=== PATIENT | male | born 1960 | race Caucasian/White ===

== ENCOUNTER 2017-04-27 13:58 | Inpatient (IN) ==
[2017-04-27] MEDS ORDERED: ACETAMINOPHEN 325 MG TABLET PO PRN (14:16)
[2017-04-27] MEDS ORDERED: MORPHINE 2 MG/1 ML SYRINGE IV PRN (14:16)
[2017-04-27 14:26] LABS: ABG HCO3 30.8 MMOL/L (20-26); ABG Oxygen Saturation 98.3 % (95-100); ABG PCO2 40.6 MM HG (35-48); ABG PO2 94.4 MM HG (80-95); ABG TCO2 27.2 MMOL/L (23-27)
[2017-04-27] MEDS ORDERED: SODIUM CHLORIDE 0.9% 3,550 ML IV ONE (14:26)
[2017-04-27] MEDS ORDERED: NOREPINEPHRINE 8 MG in SODIUM CHLORIDE 0.9% 242 ML IV SCH (14:30)
[2017-04-27] MEDS ORDERED: MIDAZOLAM 100 MG in SODIUM CHLORIDE 0.9% 80 ML IV SCH (14:30)
[2017-04-27] MEDS ORDERED: LORazepam INJ 40 MG in DEXTROSE 5% 30 ML IV SCH (14:30)
[2017-04-27 15:00] LABS: Apearance,Urine Slightly Hazy (Clear); Bacteria,Urine Occasional /HPF (Few); Bilirubin,Urine Negative (Negative); Blood, Urine Moderate mg/dL (Negative); Glucose,Urine (UA) Negative (Negative); Hyaline Casts,Urine 1 /LPF (0-3); Ketones,Urine Negative (Negative); Mucus,Urine Occasional /LPF (Occasional); Nitrite,Urine Negative (Negative); Protein,Urine 30 MG/DL; RBC,Urine 157 /HPF (0-4); Renal Epithelial Cells,Urine Occasional /HPF (<1); Urine Color Yellow (Yellow); Urine Specific Gravity 1.028 (1.001-1.035); Urine Urobilinogen < 2.0 EU/DL (0.2-1.0); WBC,Urine 3 /HPF (0-6)
[2017-04-27 15:04] LABS: Basophils % 0.2 % (0.0-0.8); Hemoglobin 11.5 GM/DL (14.0-18.0); Immature Granulocytes % 1.2 %; Lymphocytes # 0.6 10*3/uL (1.4-4.0); Lymphocytes % 3.8 % (21.2-54.2); Mean Corpuscular HGB Conc 31.1 GM/DL (32-36); Mean Corpuscular Hemoglobin 29 PG (27-34); Mean Corpuscular Volume 93.9 FL (87-102); Mean Platelet Volume 9.3 FL (9.6-12.0); Neutrophils # 14.4 10*3/uL (1.4-7.4); Neutrophils % 88.8 % (38.7-73.9); Platelet Count 366 T/CUMM (130-400); Red Blood Count 3.94 MC/CUMM (3.8-5.5); White Blood Count 16.2 T/CUMM (4-12)
[2017-04-27 15:36] LABS: Calcium 8.6 MG/DL (8.5-10.1)
[2017-04-27 15:37] LABS: Albumin 2.1 G/DL (3.4-5.0); Bilirubin,Total 0.5 MG/DL (0.2-1.0); Magnesium 2.7 MG/DL (1.8-2.4); Osmolality,Calculated 285.3 MOS/KG (273-304); Potassium 4.5 MMOL/L (3.5-5.1); Thyroid Stimulating Hormone 0.132 uIU/ml (0.358-3.74); Troponin I Only 0.022 NG/ML (0.00-0.045)
[2017-04-27 16:01] LABS: Band Neutrophils 1 % (0-10); Lymphocytes 4 % (20-55); Platelet Estimate Normal; Segmented Neutrophils 91 % (50-85); Total Cells Counted 100
[2017-04-27 16:19] LABS: HIV Antigen/Antibody Result Nonreactive (Nonreactive); Hepatitis A Ab IgM Quant 0.08 Index; Hepatitis A Ab IgM Result Negative (Negative); Hepatitis B Core IgM Quant 0.17 Index; Hepatitis B Core IgM Result Negative (Negative); Hepatitis B Surface Ag Quant < 0.10 Index; Hepatitis B Surface Ag Result Negative (Negative); Hepatitis C Virus Ab Quant 0.03 Index; Hepatitis C Virus Ab Result Negative (Negative)
[2017-04-27] MEDS: PROPOFOL 1,000 MG/100 ML BOTTLE IV SCH ×2 (16:45→23:24)
[2017-04-27] MEDS: SODIUM CHLORIDE 0.9% 1,000 ML IV SCH (16:46)
[2017-04-27] MEDS: FAMOTIDINE 20 MG/2 ML VIAL IV SCH (16:46)
[2017-04-27] MEDS: PIPERACILLIN/TAZOBACTAM 3,375 MG in SODIUM CHLORIDE 0.9% 100 ML IV SCH (16:46)
[2017-04-27] MEDS: GENTAMICIN INJ 560 MG in SODIUM CHLORIDE 0.9% 100 ML IV SCH (19:49)
[2017-04-27] MEDS: ENOXAPARIN 40 MG/0.4 ML SYRINGE SUBCUT SCH (20:30)
[2017-04-27] MEDS ORDERED: VANCOMYCIN INJ 2,000 MG in SODIUM CHLORIDE 0.9% 500 ML IV ONE (21:00)
[2017-04-27] MEDS ORDERED: fentaNYL 100 MCG/2 ML VIAL IV ONE (21:36)
[2017-04-27] MEDS ORDERED: EPINEPHrine 1 MG/ML VIAL ONE (22:02)
[2017-04-27] MEDS ORDERED: PHENYLEPHRINE DRIP 40 MG/250 ML PREMIX IV ONE (22:19)
[2017-04-27 22:32] LABS: ABG Base Excess 1.9 MMOL/L (-2.5-2.5); ABG HCO3 26.1 MMOL/L (20-26); ABG PCO2 46.8 MM HG (35-48); ABG PH 7.379 (7.35-7.45); ABG TCO2 24.7 MMOL/L (23-27)
[2017-04-27] MEDS: PHENYLEPHRINE DRIP 40 MG/250 ML PREMIX IV SCH (22:47)
[2017-04-27] MEDS: fentaNYL INJ 1,250 MCG in SODIUM CHLORIDE 0.9% 225 ML IV SCH (22:48)
[2017-04-27] MEDS ORDERED: ALBUTEROL/IPRATROPIUM 3 ML NEB RESP TX PRN (23:17)
[2017-04-27] MEDS ORDERED: SODIUM CHLORIDE 0.9% 1,000 ML IV ONE (23:19)
[2017-04-28] MEDS: DOPamine 800 MG/250 ML PREMIX IV SCH (00:04)
[2017-04-28] MEDS: PIPERACILLIN/TAZOBACTAM 3,375 MG in SODIUM CHLORIDE 0.9% 100 ML IV SCH ×3 (00:14→20:08)
[2017-04-28] MEDS: SODIUM CHLORIDE 0.9% 1,000 ML IV SCH ×4 (01:32→15:26)
[2017-04-28] MEDS: ALBUTEROL/IPRATROPIUM 3 ML NEB RESP TX SCH ×5 (02:02→20:05)
[2017-04-28] MEDS: FAMOTIDINE 20 MG/2 ML VIAL IV SCH ×2 (03:30→20:08)
[2017-04-28 04:21] LABS: Basophils # 0.1 10*3/uL (0.0-0.2); Basophils % 0.6 % (0.0-0.8); Eosinophils # 0.1 10*3/uL (0.0-0.87); Eosinophils % 0.8 % (0.00-10.9); Hematocrit 35.2 VOL% (42.0-52.0); Immature Granulocytes % 0.7 %; Immature Granulocytes Absolute 0.11 #; Lymphocytes % 6.3 % (21.2-54.2); Mean Corpuscular HGB Conc 31.3 GM/DL (32-36); Mean Corpuscular Hemoglobin 29 PG (27-34); Mean Corpuscular Volume 92.1 FL (87-102); Mean Platelet Volume 9.1 FL (9.6-12.0); Monocytes # 1.5 10*3/uL (0.11-0.8); Monocytes % 9.5 % (1.7-12.7); Neutrophils # 12.9 10*3/uL (1.4-7.4); Neutrophils % 82.1 % (38.7-73.9); Platelet Count 360 T/CUMM (130-400); Red Blood Count 3.82 MC/CUMM (3.8-5.5); Red Cell Distribution Width 12.9 % (9.3-17.3); White Blood Count 15.8 T/CUMM (4-12)
[2017-04-28 04:35] LABS: ABG Base Excess 2.3 MMOL/L (-2.5-2.5); ABG HCO3 27.5 MMOL/L (20-26); ABG PCO2 45.8 MM HG (35-48); ABG PH 7.397 (7.35-7.45); ABG PO2 118.1 MM HG (80-95); ABG TCO2 28.9 MMOL/L (23-27)
[2017-04-28 04:49] LABS: Lactic Acid 0.8 MMOL/L (0.4-2.0)
[2017-04-28 04:56] LABS: Albumin 1.9 G/DL (3.4-5.0); Bilirubin,Total 0.5 MG/DL (0.2-1.0); Calcium 8.1 MG/DL (8.5-10.1); Magnesium 2.5 MG/DL (1.8-2.4); Osmolality,Calculated 290.7 MOS/KG (273-304); Potassium 3.8 MMOL/L (3.5-5.1); Total Protein 5.6 G/DL (6.4-8.3)
[2017-04-28] MEDS: PROPOFOL 1,000 MG/100 ML BOTTLE IV SCH ×6 (04:56→22:51)
[2017-04-28] MEDS: VANCOMYCIN INJ 1,750 MG in SODIUM CHLORIDE 0.9% 500 ML IV SCH ×2 (10:19→21:14)
[2017-04-28 12:30] LABS: ABG Base Excess 3.9 MMOL/L (-2.5-2.5); ABG HCO3 27.9 MMOL/L (20-26); ABG Oxygen Saturation 97.1 % (95-100); ABG PCO2 50.4 MM HG (35-48); ABG PH 7.382 (7.35-7.45); ABG PO2 91.9 MM HG (80-95); ABG TCO2 26.9 MMOL/L (23-27)
[2017-04-28] MEDS ORDERED: LIDOCAINE 1% 20 ML VIAL MISC INJ ONE (15:28)
[2017-04-28] MEDS ORDERED: LIDOCAINE 2% 20 ML VIAL RESP TX ONE (15:28)
[2017-04-28] MEDS ORDERED: ETOMIDATE 20 MG/10 ML VIAL IV ONE (17:43)
[2017-04-28] MEDS ORDERED: CISATRACURIUM 10 MG/5 ML VIAL IV ONE (19:39)
[2017-04-28 19:41] LABS: ABG Base Excess 3.5 MMOL/L (-2.5-2.5); ABG HCO3 27.3 MMOL/L (20-26); ABG Oxygen Saturation 85.6 % (95-100); ABG PCO2 54.2 MM HG (35-48); ABG PH 7.355 (7.35-7.45); ABG PO2 54.8 MM HG (80-95); ABG TCO2 27.2 MMOL/L (23-27)
[2017-04-28] MEDS: CISATRACURIUM 10 MG/5 ML VIAL IV PRN ×2 (20:58→22:45)
[2017-04-28] MEDS: GENTAMICIN INJ 560 MG in SODIUM CHLORIDE 0.9% 100 ML IV SCH (21:17)
[2017-04-28] MEDS: ENOXAPARIN 40 MG/0.4 ML SYRINGE SUBCUT SCH (21:24)
[2017-04-28] MEDS: ALBUTEROL 2.5 MG/3 ML NEB RESP TX PRN (21:27)
[2017-04-28] MEDS: fentaNYL INJ 1,250 MCG in SODIUM CHLORIDE 0.9% 225 ML IV SCH (21:59)
[2017-04-28] MEDS ORDERED: CISATRACURIUM 200 MG in SODIUM CHLORIDE 0.9% 100 ML IV SCH (23:00)
[2017-04-28] MEDS: CISATRACURIUM 200 MG in SODIUM CHLORIDE 0.9% 100 ML IV SCH (23:26)
[2017-04-29] MEDS: DOPamine 800 MG/250 ML PREMIX IV SCH ×3 (00:08→23:07)
[2017-04-29] MEDS: PIPERACILLIN/TAZOBACTAM 3,375 MG in SODIUM CHLORIDE 0.9% 100 ML IV SCH ×3 (00:33→16:06)
[2017-04-29] MEDS: ALBUTEROL/IPRATROPIUM 3 ML NEB RESP TX SCH ×4 (01:33→19:44)
[2017-04-29] MEDS: PROPOFOL 1,000 MG/100 ML BOTTLE IV SCH ×8 (01:40→23:15)
[2017-04-29] MEDS: SODIUM CHLORIDE 0.9% 1,000 ML IV SCH ×3 (03:05→19:32)
[2017-04-29] MEDS: fentaNYL INJ 1,250 MCG in SODIUM CHLORIDE 0.9% 225 ML IV SCH ×5 (03:38→21:28)
[2017-04-29] MEDS: FAMOTIDINE 20 MG/2 ML VIAL IV SCH ×2 (04:40→16:07)
[2017-04-29 05:07] LABS: ABG Base Excess -4.8 MMOL/L (-2.5-2.5); ABG HCO3 20.4 MMOL/L (20-26); ABG Oxygen Saturation 96.1 % (95-100); ABG TCO2 28.2 MMOL/L (23-27)
[2017-04-29 05:13] LABS: Basophils # 0.1 10*3/uL (0.0-0.2); Basophils % 0.3 % (0.0-0.8); Eosinophils # 0.2 10*3/uL (0.0-0.87); Eosinophils % 0.6 % (0.00-10.9); Hematocrit 39.3 VOL% (42.0-52.0); Immature Granulocytes % 4.2 %; Immature Granulocytes Absolute 1.46 #; Lymphocytes % 2.8 % (21.2-54.2); Mean Corpuscular HGB Conc 30.5 GM/DL (32-36); Mean Corpuscular Hemoglobin 30 PG (27-34); Mean Corpuscular Volume 96.6 FL (87-102); Mean Platelet Volume 9.1 FL (9.6-12.0); Monocytes # 2.1 10*3/uL (0.11-0.8); Neutrophils # 29.8 10*3/uL (1.4-7.4); Neutrophils % 86.1 % (38.7-73.9); Platelet Count 385 T/CUMM (130-400); Red Blood Count 4.07 MC/CUMM (3.8-5.5); Red Cell Distribution Width 13.1 % (9.3-17.3); White Blood Count 34.7 T/CUMM (4-12)
[2017-04-29 05:13] LABS: ABG PH 7.069 (7.35-7.45)
[2017-04-29] MEDS ORDERED: SODIUM BICARBONATE 50 MEQ/50 ML SYRINGE IV ONE ×2 (05:31→05:32)
[2017-04-29 05:37] LABS: Band Neutrophils 2 % (0-10); Hypochromasia 1+; Lymphocytes 2 % (20-55); Metamyelocytes 1 %; Platelet Estimate Normal; Segmented Neutrophils 90 % (50-85); Total Cells Counted 100
[2017-04-29 05:54] LABS: Calcium 7.9 MG/DL (8.5-10.1); Osmolality,Calculated 289.8 MOS/KG (273-304); Potassium 4.6 MMOL/L (3.5-5.1)
[2017-04-29] MEDS: VANCOMYCIN INJ 1,750 MG in SODIUM CHLORIDE 0.9% 500 ML IV SCH ×2 (08:18→23:13)
[2017-04-29] MEDS ORDERED: DEXTROSE 50% 25 GM/50 ML VIAL IV PRN (16:09)
[2017-04-29] MEDS ORDERED: GLUCAGON 1 MG VIAL IM PRN (16:09)
[2017-04-29] MEDS: INSULIN REGULAR 100 UNIT/ML SUBCUT SCH (18:33)
[2017-04-29] MEDS: ENOXAPARIN 40 MG/0.4 ML SYRINGE SUBCUT SCH (23:13)
[2017-04-30] MEDS: INSULIN REGULAR 100 UNIT/ML SUBCUT SCH ×5 (00:16→23:31)
[2017-04-30] MEDS: DOPamine 800 MG/250 ML PREMIX IV SCH ×5 (00:16→23:31)
[2017-04-30] MEDS: ALBUTEROL/IPRATROPIUM 3 ML NEB RESP TX SCH ×4 (00:22→19:19)
[2017-04-30] MEDS: SODIUM CHLORIDE 0.9% 1,000 ML IV SCH ×3 (00:41→08:27)
[2017-04-30] MEDS: CISATRACURIUM 200 MG in SODIUM CHLORIDE 0.9% 100 ML IV SCH ×4 (00:41→22:51)
[2017-04-30] MEDS: PIPERACILLIN/TAZOBACTAM 3,375 MG in SODIUM CHLORIDE 0.9% 100 ML IV SCH ×3 (00:52→15:46)
[2017-04-30] MEDS: LINEZOLID INJ 600 MG in PREMIX 1 EACH IV SCH ×2 (00:52→10:50)
[2017-04-30] MEDS: PROPOFOL 1,000 MG/100 ML BOTTLE IV SCH ×7 (03:00→23:30)
[2017-04-30] MEDS: fentaNYL INJ 1,250 MCG in SODIUM CHLORIDE 0.9% 225 ML IV SCH ×4 (03:19→22:52)
[2017-04-30] MEDS: FAMOTIDINE 20 MG/2 ML VIAL IV SCH ×2 (04:13→15:46)
[2017-04-30 05:08] LABS: Magnesium 2.5 MG/DL (1.8-2.4); Prealbumin 10.6 MG/DL (20-40)
[2017-04-30 05:31] LABS: ABG Base Excess -4.6 MMOL/L (-2.5-2.5); ABG HCO3 20.6 MMOL/L (20-26); ABG Oxygen Saturation 97.4 % (95-100); ABG TCO2 27.1 MMOL/L (23-27)
[2017-04-30 05:33] LABS: ABG PCO2 95.7 MM HG (35-48); ABG PH 7.083 (7.35-7.45)
[2017-04-30 06:08] LABS: HIV Antigen/Antibody Result Nonreactive (Nonreactive)
[2017-04-30 07:03] LABS: Basophils # 0.1 10*3/uL (0.0-0.2); Basophils % 0.3 % (0.0-0.8); Eosinophils # 0.2 10*3/uL (0.0-0.87); Eosinophils % 0.8 % (0.00-10.9); Hematocrit 36.5 VOL% (42.0-52.0); Immature Granulocytes % 4.3 %; Immature Granulocytes Absolute 1.12 #; Lymphocytes # 0.6 10*3/uL (1.4-4.0); Lymphocytes % 2.3 % (21.2-54.2); Mean Corpuscular HGB Conc 30.1 GM/DL (32-36); Mean Corpuscular Hemoglobin 29 PG (27-34); Mean Corpuscular Volume 95.5 FL (87-102); Mean Platelet Volume 9.4 FL (9.6-12.0); Monocytes # 1.4 10*3/uL (0.11-0.8); Monocytes % 5.3 % (1.7-12.7); Neutrophils # 22.5 10*3/uL (1.4-7.4); Platelet Count 282 T/CUMM (130-400); Red Blood Count 3.82 MC/CUMM (3.8-5.5); Red Cell Distribution Width 12.9 % (9.3-17.3); White Blood Count 25.9 T/CUMM (4-12)
[2017-04-30 07:28] LABS: Band Neutrophils 3 % (0-10); Eosinophils 1 % (0-10); Lymphocytes 4 % (20-55); Myelocytes 1 %; Segmented Neutrophils 88 % (50-85); Total Cells Counted 100
[2017-04-30 07:29] LABS: Hypochromasia 1+
[2017-04-30 07:30] LABS: Microcytosis 1+; Platelet Estimate Normal
[2017-04-30 07:33] LABS: Calcium 7.4 MG/DL (8.5-10.1); Magnesium 2.5 MG/DL (1.8-2.4); Osmolality,Calculated 289.1 MOS/KG (273-304); Potassium 5.6 MMOL/L (3.5-5.1)
[2017-04-30] MEDS ORDERED: SODIUM POLYSTYRENE SULFATE 15 GM/60 ML BOTTLE RECTAL ONE (07:47)
[2017-04-30] MEDS: SODIUM BICARB INJ 100 MEQ in DEXTROSE 5% 900 ML IV SCH ×2 (08:18→19:40)
[2017-04-30 08:33] LABS: ABG Base Excess -10.2 MMOL/L (-2.5-2.5); ABG HCO3 16.2 MMOL/L (20-26); ABG Oxygen Saturation 95.6 % (95-100); ABG PCO2 47.5 MM HG (35-48); ABG PO2 79.1 MM HG (80-95); ABG TCO2 17.1 MMOL/L (23-27)
[2017-04-30 08:46] LABS: ABG PH 7.182 (7.35-7.45)
[2017-04-30 17:11] LABS: ABG Base Excess -10.4 MMOL/L (-2.5-2.5); ABG HCO3 17.1 MMOL/L (20-26); ABG Oxygen Saturation 93.4 % (95-100); ABG PCO2 45.6 MM HG (35-48); ABG PO2 77.2 MM HG (80-95); ABG TCO2 18.5 MMOL/L (23-27)
[2017-04-30 17:13] LABS: ABG PH 7.192 (7.35-7.45)
[2017-04-30] MEDS: TOBRAMYCIN 80 MG/2 ML VIAL RESP TX SCH (19:44)
[2017-04-30] MEDS: ENOXAPARIN 40 MG/0.4 ML SYRINGE SUBCUT SCH (21:08)
[2017-05-01] MEDS: PIPERACILLIN/TAZOBACTAM 3,375 MG in SODIUM CHLORIDE 0.9% 100 ML IV SCH ×3 (00:03→15:44)
[2017-05-01] MEDS: LINEZOLID INJ 600 MG in PREMIX 1 EACH IV SCH ×2 (00:03→10:43)
[2017-05-01] MEDS: ALBUTEROL/IPRATROPIUM 3 ML NEB RESP TX SCH ×2 (00:37→07:02)
[2017-05-01] MEDS: DOPamine 800 MG/250 ML PREMIX IV SCH ×2 (02:35→11:38)
[2017-05-01] MEDS: SODIUM BICARB INJ 100 MEQ in DEXTROSE 5% 900 ML IV SCH ×2 (03:05→14:09)
[2017-05-01] MEDS: PROPOFOL 1,000 MG/100 ML BOTTLE IV SCH ×5 (03:30→20:06)
[2017-05-01] MEDS: fentaNYL INJ 1,250 MCG in SODIUM CHLORIDE 0.9% 225 ML IV SCH ×4 (04:45→22:30)
[2017-05-01 05:02] LABS: ABG Base Excess 0.8 MMOL/L (-2.5-2.5); ABG HCO3 25.1 MMOL/L (20-26); ABG PCO2 66.8 MM HG (35-48); ABG PH 7.255 (7.35-7.45); ABG PO2 80.1 MM HG (80-95); ABG TCO2 27.3 MMOL/L (23-27)
[2017-05-01] MEDS: FAMOTIDINE 20 MG/2 ML VIAL IV SCH ×2 (05:05→15:44)
[2017-05-01 05:11] LABS: Basophils # 0.1 10*3/uL (0.0-0.2); Basophils % 0.5 % (0.0-0.8); Eosinophils # 0.4 10*3/uL (0.0-0.87); Eosinophils % 2.3 % (0.00-10.9); Hematocrit 35.1 VOL% (42.0-52.0); Hemoglobin 10.8 GM/DL (14.0-18.0); Immature Granulocytes % 2.2 %; Immature Granulocytes Absolute 0.33 #; Lymphocytes # 0.7 10*3/uL (1.4-4.0); Lymphocytes % 4.5 % (21.2-54.2); Mean Corpuscular HGB Conc 30.8 GM/DL (32-36); Mean Corpuscular Hemoglobin 29 PG (27-34); Mean Corpuscular Volume 93.1 FL (87-102); Mean Platelet Volume 9.4 FL (9.6-12.0); Monocytes # 0.7 10*3/uL (0.11-0.8); Monocytes % 4.9 % (1.7-12.7); Neutrophils % 85.6 % (38.7-73.9); Platelet Count 256 T/CUMM (130-400); Red Blood Count 3.77 MC/CUMM (3.8-5.5); Red Cell Distribution Width 13.2 % (9.3-17.3); White Blood Count 15.1 T/CUMM (4-12)
[2017-05-01 05:35] LABS: Band Neutrophils 4 % (0-10); Eosinophils 1 % (0-10); Lymphocytes 4 % (20-55); Segmented Neutrophils 86 % (50-85); Total Cells Counted 100
[2017-05-01 05:36] LABS: Hypochromasia 1+; Microcytosis 1+; Platelet Estimate Normal
[2017-05-01 05:40] LABS: Calcium 7.6 MG/DL (8.5-10.1); Magnesium 2.5 MG/DL (1.8-2.4); Osmolality,Calculated 292.1 MOS/KG (273-304); Potassium 4.2 MMOL/L (3.5-5.1)
[2017-05-01] MEDS: INSULIN REGULAR 100 UNIT/ML SUBCUT SCH ×3 (05:43→18:19)
[2017-05-01] MEDS: TOBRAMYCIN 80 MG/2 ML VIAL RESP TX SCH ×2 (07:02→21:15)
[2017-05-01 08:35] LABS: ABG Base Excess 0.1 MMOL/L (-2.5-2.5); ABG HCO3 24.5 MMOL/L (20-26); ABG PH 7.231 (7.35-7.45); ABG PO2 88.1 MM HG (80-95); ABG TCO2 27.2 MMOL/L (23-27)
[2017-05-01] MEDS: methylPREDNISolone SOD SUC 40 MG/1 ML VIAL IV SCH ×2 (08:49→15:44)
[2017-05-01 09:12] LABS: ABG PCO2 69.7 MM HG (35-48)
[2017-05-01] MEDS: FUROSEMIDE 40 MG/4 ML VIAL IV SCH (11:54)
[2017-05-01] MEDS ORDERED: INFLUENZA VIRUS VACCINE 0.5 ML SYRINGE IM ONE (13:16)
[2017-05-01] MEDS: CISATRACURIUM 200 MG in SODIUM CHLORIDE 0.9% 100 ML IV SCH ×2 (18:01→23:17)
[2017-05-01] MEDS: AMINO ACIDS/DEXT/LYTES 5-15% 2,000 ML IV SCH (18:19)
[2017-05-01] MEDS: ENOXAPARIN 40 MG/0.4 ML SYRINGE SUBCUT SCH (20:04)
[2017-05-02] MEDS: methylPREDNISolone SOD SUC 40 MG/1 ML VIAL IV SCH ×3 (00:04→16:09)
[2017-05-02] MEDS: PROPOFOL 1,000 MG/100 ML BOTTLE IV SCH ×6 (00:04→18:55)
[2017-05-02] MEDS: LINEZOLID INJ 600 MG in PREMIX 1 EACH IV SCH ×2 (00:06→11:12)
[2017-05-02] MEDS: INSULIN REGULAR 100 UNIT/ML SUBCUT SCH ×4 (00:15→18:47)
[2017-05-02] MEDS: PIPERACILLIN/TAZOBACTAM 3,375 MG in SODIUM CHLORIDE 0.9% 100 ML IV SCH ×3 (01:00→16:09)
[2017-05-02] MEDS: DOPamine 800 MG/250 ML PREMIX IV SCH (02:04)
[2017-05-02] MEDS: SODIUM BICARB INJ 100 MEQ in DEXTROSE 5% 900 ML IV SCH ×3 (02:06→18:46)
[2017-05-02] MEDS: fentaNYL INJ 1,250 MCG in SODIUM CHLORIDE 0.9% 225 ML IV SCH ×4 (05:04→18:56)
[2017-05-02] MEDS: FAMOTIDINE 20 MG/2 ML VIAL IV SCH ×2 (05:20→16:09)
[2017-05-02 05:23] LABS: ABG Base Excess 2.9 MMOL/L (-2.5-2.5); ABG HCO3 31.3 MMOL/L (20-26); ABG Oxygen Saturation 94.5 % (95-100); ABG PH 7.259 (7.35-7.45); ABG PO2 79.9 MM HG (80-95); ABG TCO2 33.5 MMOL/L (23-27)
[2017-05-02 05:25] LABS: Basophils % 0.2 % (0.0-0.8); Hematocrit 30.6 VOL% (42.0-52.0); Hemoglobin 9.7 GM/DL (14.0-18.0); Immature Granulocytes % 2.4 %; Immature Granulocytes Absolute 0.28 #; Lymphocytes # 0.3 10*3/uL (1.4-4.0); Lymphocytes % 2.8 % (21.2-54.2); Mean Corpuscular HGB Conc 31.7 GM/DL (32-36); Mean Corpuscular Hemoglobin 29 PG (27-34); Mean Corpuscular Volume 92.2 FL (87-102); Mean Platelet Volume 9.6 FL (9.6-12.0); Monocytes # 0.6 10*3/uL (0.11-0.8); Monocytes % 5.2 % (1.7-12.7); NRBC # 0.02 10*3/uL; Neutrophils # 10.3 10*3/uL (1.4-7.4); Neutrophils % 89.4 % (38.7-73.9); Platelet Count 201 T/CUMM (130-400); Red Blood Count 3.32 MC/CUMM (3.8-5.5); Red Cell Distribution Width 13.4 % (9.3-17.3); White Blood Count 11.5 T/CUMM (4-12)
[2017-05-02 05:28] LABS: ABG PCO2 71.5 MM HG (35-48)
[2017-05-02 06:12] LABS: Calcium 7.7 MG/DL (8.5-10.1); Osmolality,Calculated 295.4 MOS/KG (273-304); Potassium 4.4 MMOL/L (3.5-5.1)
[2017-05-02 06:17] LABS: Band Neutrophils 1 % (0-10); Hypochromasia 1+; Lymphocytes 3 % (20-55); Microcytosis 1+; Platelet Estimate Normal; Segmented Neutrophils 90 % (50-85); Total Cells Counted 100
[2017-05-02] MEDS ORDERED: FUROSEMIDE 40 MG/4 ML VIAL IV ONE (06:56)
[2017-05-02] MEDS: TOBRAMYCIN 80 MG/2 ML VIAL RESP TX SCH ×2 (08:33→20:13)
[2017-05-02 08:38] LABS: ABG Base Excess 1.1 MMOL/L (-2.5-2.5); ABG HCO3 25.2 MMOL/L (20-26); ABG Oxygen Saturation 90.8 % (95-100); ABG PH 7.232 (7.35-7.45); ABG PO2 65.7 MM HG (80-95); ABG TCO2 28.3 MMOL/L (23-27)
[2017-05-02 08:42] LABS: ABG PCO2 72.3 MM HG (35-48)
[2017-05-02] MEDS: FUROSEMIDE 40 MG/4 ML VIAL IV SCH (09:58)
[2017-05-02] MEDS: CISATRACURIUM 200 MG in SODIUM CHLORIDE 0.9% 100 ML IV SCH (10:01)
[2017-05-02] MEDS: AMINO ACIDS/DEXT/LYTES 5-15% 2,000 ML IV SCH (17:38)
[2017-05-02] MEDS: ENOXAPARIN 40 MG/0.4 ML SYRINGE SUBCUT SCH (21:50)
[2017-05-03] MEDS: methylPREDNISolone SOD SUC 40 MG/1 ML VIAL IV SCH ×4 (00:06→23:37)
[2017-05-03] MEDS: INSULIN REGULAR 100 UNIT/ML SUBCUT SCH ×5 (00:06→23:36)
[2017-05-03] MEDS: LINEZOLID INJ 600 MG in PREMIX 1 EACH IV SCH ×3 (00:06→23:37)
[2017-05-03] MEDS: PIPERACILLIN/TAZOBACTAM 3,375 MG in SODIUM CHLORIDE 0.9% 100 ML IV SCH ×3 (00:07→15:40)
[2017-05-03] MEDS: PROPOFOL 1,000 MG/100 ML BOTTLE IV SCH ×6 (00:07→21:39)
[2017-05-03] MEDS: CISATRACURIUM 200 MG in SODIUM CHLORIDE 0.9% 100 ML IV SCH ×3 (02:40→23:37)
[2017-05-03] MEDS: fentaNYL INJ 1,250 MCG in SODIUM CHLORIDE 0.9% 225 ML IV SCH ×4 (02:42→23:26)
[2017-05-03 04:45] LABS: ABG Base Excess -1.9 MMOL/L (-2.5-2.5); ABG HCO3 22.8 MMOL/L (20-26); ABG Oxygen Saturation 97.3 % (95-100); ABG TCO2 29.8 MMOL/L (23-27)
[2017-05-03 04:47] LABS: Basophils % 0.2 % (0.0-0.8); Hematocrit 29.9 VOL% (42.0-52.0); Hemoglobin 9.3 GM/DL (14.0-18.0); Immature Granulocytes % 4.9 %; Immature Granulocytes Absolute 0.59 #; Lymphocytes # 0.5 10*3/uL (1.4-4.0); Lymphocytes % 3.7 % (21.2-54.2); Mean Corpuscular HGB Conc 31.1 GM/DL (32-36); Mean Corpuscular Hemoglobin 29 PG (27-34); Mean Corpuscular Volume 94.6 FL (87-102); Mean Platelet Volume 9.9 FL (9.6-12.0); Monocytes % 8.2 % (1.7-12.7); NRBC # 0.02 10*3/uL; Neutrophils # 10.1 10*3/uL (1.4-7.4); Platelet Count 178 T/CUMM (130-400); Red Blood Count 3.16 MC/CUMM (3.8-5.5); Red Cell Distribution Width 13.3 % (9.3-17.3); White Blood Count 12.1 T/CUMM (4-12)
[2017-05-03 04:48] LABS: ABG PH 7.089 (7.35-7.45)
[2017-05-03 05:12] LABS: Calcium 7.4 MG/DL (8.5-10.1); Osmolality,Calculated 294.8 MOS/KG (273-304); Potassium 4.7 MMOL/L (3.5-5.1)
[2017-05-03] MEDS: DOPamine 800 MG/250 ML PREMIX IV SCH (05:45)
[2017-05-03] MEDS: FAMOTIDINE 20 MG/2 ML VIAL IV SCH ×2 (05:45→15:53)
[2017-05-03 05:46] LABS: Band Neutrophils 2 % (0-10); Hypochromasia 1+; Lymphocytes 6 % (20-55); Microcytosis 1+; Segmented Neutrophils 84 % (50-85); Total Cells Counted 100
[2017-05-03] MEDS ORDERED: SODIUM BICARBONATE 50 MEQ/50 ML SYRINGE IV ONE ×2 (06:00→06:47)
[2017-05-03 06:39] LABS: ABG Base Excess -1.1 MMOL/L (-2.5-2.5); ABG HCO3 23.5 MMOL/L (20-26); ABG Oxygen Saturation 97.6 % (95-100); ABG TCO2 29.8 MMOL/L (23-27)
[2017-05-03 06:42] LABS: ABG PCO2 97.4 MM HG (35-48); ABG PH 7.112 (7.35-7.45)
[2017-05-03] MEDS: TOBRAMYCIN 80 MG/2 ML VIAL RESP TX SCH ×2 (07:35→19:43)
[2017-05-03] MEDS: FUROSEMIDE 40 MG/4 ML VIAL IV SCH ×2 (07:44→15:42)
[2017-05-03] MEDS ORDERED: ATROPINE 1 MG/10 ML SYRINGE ONE (08:10)
[2017-05-03 08:20] LABS: ABG HCO3 25.2 MMOL/L (20-26); ABG Oxygen Saturation 91.4 % (95-100); ABG PH 7.212 (7.35-7.45); ABG PO2 62.8 MM HG (80-95); ABG TCO2 28.9 MMOL/L (23-27)
[2017-05-03 08:23] LABS: ABG PCO2 76.8 MM HG (35-48)
[2017-05-03] MEDS: SODIUM BICARB INJ 100 MEQ in DEXTROSE 5% 900 ML IV SCH ×2 (15:09→21:40)
[2017-05-03] MEDS: AMINO ACIDS/DEXT/LYTES 5-15% 2,000 ML IV SCH (17:09)
[2017-05-03] MEDS: ENOXAPARIN 40 MG/0.4 ML SYRINGE SUBCUT SCH (21:39)
[2017-05-03] MEDS: MINERAL OIL/PETROLATUM OPH OINT 3.5 GM TUBE BOTH EYES SCH (21:42)
[2017-05-04] MEDS: PIPERACILLIN/TAZOBACTAM 3,375 MG in SODIUM CHLORIDE 0.9% 100 ML IV SCH ×3 (00:35→15:40)
[2017-05-04] MEDS: DOPamine 800 MG/250 ML PREMIX IV SCH (03:33)
[2017-05-04] MEDS: FAMOTIDINE 20 MG/2 ML VIAL IV SCH ×2 (04:05→15:50)
[2017-05-04] MEDS: SODIUM BICARB INJ 100 MEQ in DEXTROSE 5% 900 ML IV SCH (04:06)
[2017-05-04 04:09] LABS: Basophils % 0.2 % (0.0-0.8); Hematocrit 31.7 VOL% (42.0-52.0); Hemoglobin 10.2 GM/DL (14.0-18.0); Immature Granulocytes % 4.4 %; Immature Granulocytes Absolute 0.58 #; Lymphocytes # 0.4 10*3/uL (1.4-4.0); Lymphocytes % 3.1 % (21.2-54.2); Mean Corpuscular HGB Conc 32.2 GM/DL (32-36); Mean Corpuscular Hemoglobin 29 PG (27-34); Mean Corpuscular Volume 90.6 FL (87-102); Mean Platelet Volume 10.5 FL (9.6-12.0); Monocytes # 1.1 10*3/uL (0.11-0.8); Monocytes % 8.4 % (1.7-12.7); NRBC # 0.02 10*3/uL; Neutrophils % 83.9 % (38.7-73.9); Platelet Count 198 T/CUMM (130-400); Red Cell Distribution Width 13.3 % (9.3-17.3); White Blood Count 13.1 T/CUMM (4-12)
[2017-05-04 04:31] LABS: Calcium 7.5 MG/DL (8.5-10.1); Magnesium 2.7 MG/DL (1.8-2.4); Osmolality,Calculated 295.2 MOS/KG (273-304); Potassium 4.1 MMOL/L (3.5-5.1)
[2017-05-04 05:42] LABS: Band Neutrophils 1 % (0-10); Lymphocytes 6 % (20-55); Segmented Neutrophils 93 % (50-85)
[2017-05-04 05:43] LABS: Platelet Estimate Normal; Total Cells Counted 100
[2017-05-04] MEDS: methylPREDNISolone SOD SUC 40 MG/1 ML VIAL IV SCH ×3 (06:38→23:35)
[2017-05-04] MEDS: INSULIN REGULAR 100 UNIT/ML SUBCUT SCH ×2 (06:40→12:30)
[2017-05-04] MEDS: PROPOFOL 1,000 MG/100 ML BOTTLE IV SCH ×4 (06:53→20:10)
[2017-05-04] MEDS: TOBRAMYCIN 80 MG/2 ML VIAL RESP TX SCH ×2 (07:09→19:28)
[2017-05-04 07:19] LABS: ABG Base Excess 2.8 MMOL/L (-2.5-2.5); ABG HCO3 26.8 MMOL/L (20-26); ABG Oxygen Saturation 93.3 % (95-100); ABG PH 7.225 (7.35-7.45); ABG PO2 76.6 MM HG (80-95); ABG TCO2 30.5 MMOL/L (23-27)
[2017-05-04 07:22] LABS: ABG PCO2 79.1 MM HG (35-48)
[2017-05-04] MEDS: FUROSEMIDE 40 MG/4 ML VIAL IV SCH ×2 (07:32→15:46)
[2017-05-04] MEDS: fentaNYL INJ 1,250 MCG in SODIUM CHLORIDE 0.9% 225 ML IV SCH ×3 (07:39→21:27)
[2017-05-04] MEDS: LINEZOLID INJ 600 MG in PREMIX 1 EACH IV SCH ×2 (11:09→23:35)
[2017-05-04] MEDS: POLYVINYL ALCOHOL 1.4% OPH SOLN 15 ML BOTTLE BOTH EYES PRN (11:39)
[2017-05-04] MEDS: hydrALAZINE 20 MG/1 ML VIAL IV PRN (15:52)
[2017-05-04] MEDS: AMINO ACIDS/DEXT/LYTES 5-15% 2,000 ML IV SCH (16:48)
[2017-05-04] MEDS: MEROPENEM 500 MG in SODIUM CHLORIDE 0.9% 100 ML IV SCH (18:00)
[2017-05-04 19:05] LABS: Apearance,Urine Slightly Hazy (Clear); Bacteria,Urine Occasional /HPF (Few); Bilirubin,Urine Negative (Negative); Blood, Urine Small mg/dL (Negative); Glucose,Urine (UA) Negative (Negative); Ketones,Urine Negative (Negative); Mucus,Urine Occasional /LPF (Occasional); Nitrite,Urine Negative (Negative); Protein,Urine Negative; RBC,Urine 5 /HPF (0-4); Urine Color Yellow (Yellow); Urine Specific Gravity 1.009 (1.001-1.035); Urine Urobilinogen < 2.0 EU/DL (0.2-1.0); WBC,Urine 3 /HPF (0-6)
[2017-05-04] MEDS: CISATRACURIUM 200 MG in SODIUM CHLORIDE 0.9% 100 ML IV SCH (20:45)
[2017-05-04] MEDS: MINERAL OIL/PETROLATUM OPH OINT 3.5 GM TUBE BOTH EYES SCH (21:39)
[2017-05-04] MEDS: ENOXAPARIN 30 MG/0.3 ML SYRINGE SUBCUT SCH (21:39)
[2017-05-05] MEDS: PROPOFOL 1,000 MG/100 ML BOTTLE IV SCH ×6 (00:10→21:40)
[2017-05-05] MEDS: INSULIN REGULAR 100 UNIT/ML SUBCUT SCH ×5 (00:27→17:36)
[2017-05-05] MEDS: CISATRACURIUM 200 MG in SODIUM CHLORIDE 0.9% 100 ML IV SCH ×2 (02:14→10:50)
[2017-05-05] MEDS: DOPamine 800 MG/250 ML PREMIX IV SCH (02:15)
[2017-05-05] MEDS: SODIUM BICARB INJ 100 MEQ in DEXTROSE 5% 900 ML IV SCH ×3 (02:15→18:03)
[2017-05-05] MEDS: fentaNYL INJ 1,250 MCG in SODIUM CHLORIDE 0.9% 225 ML IV SCH ×4 (03:56→21:40)
[2017-05-05] MEDS: hydrALAZINE 20 MG/1 ML VIAL IV PRN (04:02)
[2017-05-05 04:17] LABS: ABG Base Excess 5.1 MMOL/L (-2.5-2.5); ABG Oxygen Saturation 98.4 % (95-100); ABG PH 7.283 (7.35-7.45); ABG TCO2 31.2 MMOL/L (23-27)
[2017-05-05 04:20] LABS: ABG PCO2 72.2 MM HG (35-48)
[2017-05-05 04:43] LABS: Basophils % 0.2 % (0.0-0.8); Hematocrit 31.4 VOL% (42.0-52.0); Hemoglobin 9.9 GM/DL (14.0-18.0); Immature Granulocytes % 6.5 %; Immature Granulocytes Absolute 0.74 #; Lymphocytes # 0.5 10*3/uL (1.4-4.0); Lymphocytes % 4.6 % (21.2-54.2); Mean Corpuscular HGB Conc 31.5 GM/DL (32-36); Mean Corpuscular Hemoglobin 29 PG (27-34); Mean Corpuscular Volume 90.8 FL (87-102); Mean Platelet Volume 10.4 FL (9.6-12.0); Monocytes % 8.7 % (1.7-12.7); NRBC # 0.02 10*3/uL; Neutrophils # 9.2 10*3/uL (1.4-7.4); Platelet Count 177 T/CUMM (130-400); Red Blood Count 3.46 MC/CUMM (3.8-5.5); Red Cell Distribution Width 13.2 % (9.3-17.3); White Blood Count 11.4 T/CUMM (4-12)
[2017-05-05 04:51] LABS: Calcium 7.3 MG/DL (8.5-10.1); Osmolality,Calculated 301.1 MOS/KG (273-304); Potassium 3.8 MMOL/L (3.5-5.1)
[2017-05-05 05:09] LABS: Band Neutrophils 3 % (0-10); Lymphocytes 11 % (20-55); Platelet Estimate Normal; Segmented Neutrophils 84 % (50-85); Total Cells Counted 100
[2017-05-05] MEDS: FAMOTIDINE 20 MG/2 ML VIAL IV SCH ×2 (05:31→15:25)
[2017-05-05 06:00] LABS: Troponin I Only 0.016 NG/ML (0.00-0.045)
[2017-05-05] MEDS: MEROPENEM 500 MG in SODIUM CHLORIDE 0.9% 100 ML IV SCH ×2 (06:50→17:36)
[2017-05-05] MEDS: TOBRAMYCIN 80 MG/2 ML VIAL RESP TX SCH ×2 (06:57→19:40)
[2017-05-05] MEDS: methylPREDNISolone SOD SUC 40 MG/1 ML VIAL IV SCH ×3 (07:51→23:36)
[2017-05-05] MEDS: FUROSEMIDE 40 MG/4 ML VIAL IV SCH ×2 (07:55→15:22)
[2017-05-05] MEDS: LINEZOLID INJ 300 MG in PREMIX 1 EACH IV SCH (12:00)
[2017-05-05] MEDS: AMINO ACIDS/DEXT/LYTES 5-15% 2,000 ML IV SCH (16:28)
[2017-05-05] MEDS: MINERAL OIL/PETROLATUM OPH OINT 3.5 GM TUBE BOTH EYES SCH (21:22)
[2017-05-05] MEDS: ENOXAPARIN 30 MG/0.3 ML SYRINGE SUBCUT SCH (21:22)
[2017-05-06] MEDS: DOPamine 800 MG/250 ML PREMIX IV SCH ×2 (00:04→21:04)
[2017-05-06] MEDS: INSULIN REGULAR 100 UNIT/ML SUBCUT SCH ×4 (00:04→17:17)
[2017-05-06] MEDS: LINEZOLID INJ 300 MG in PREMIX 1 EACH IV SCH ×2 (00:04→12:30)
[2017-05-06] MEDS: CISATRACURIUM 200 MG in SODIUM CHLORIDE 0.9% 100 ML IV SCH ×3 (00:07→19:20)
[2017-05-06] MEDS: SODIUM BICARB INJ 100 MEQ in DEXTROSE 5% 900 ML IV SCH ×2 (00:55→19:18)
[2017-05-06] MEDS: PROPOFOL 1,000 MG/100 ML BOTTLE IV SCH ×6 (01:30→22:40)
[2017-05-06] MEDS: fentaNYL INJ 1,250 MCG in SODIUM CHLORIDE 0.9% 225 ML IV SCH ×4 (02:50→19:40)
[2017-05-06 03:58] LABS: ABG Base Excess 6.7 MMOL/L (-2.5-2.5); ABG HCO3 30.5 MMOL/L (20-26); ABG Oxygen Saturation 96.7 % (95-100); ABG PH 7.269 (7.35-7.45); ABG PO2 93.9 MM HG (80-95); ABG TCO2 33.6 MMOL/L (23-27)
[2017-05-06] MEDS: FAMOTIDINE 20 MG/2 ML VIAL IV SCH ×2 (04:44→15:06)
[2017-05-06] MEDS: MEROPENEM 500 MG in SODIUM CHLORIDE 0.9% 100 ML IV SCH ×2 (05:46→17:16)
[2017-05-06] MEDS: TOBRAMYCIN 80 MG/2 ML VIAL RESP TX SCH ×2 (07:25→19:56)
[2017-05-06 07:46] LABS: Basophils % 0.1 % (0.0-0.8); Hematocrit 28.2 VOL% (42.0-52.0); Hemoglobin 9.5 GM/DL (14.0-18.0); Immature Granulocytes % 7.4 %; Immature Granulocytes Absolute 0.77 #; Lymphocytes # 0.4 10*3/uL (1.4-4.0); Lymphocytes % 4.1 % (21.2-54.2); Mean Corpuscular HGB Conc 33.7 GM/DL (32-36); Mean Corpuscular Hemoglobin 29 PG (27-34); Mean Corpuscular Volume 86.2 FL (87-102); Mean Platelet Volume 10.5 FL (9.6-12.0); Monocytes # 0.8 10*3/uL (0.11-0.8); Monocytes % 7.6 % (1.7-12.7); NRBC # 0.03 10*3/uL; Neutrophils # 8.5 10*3/uL (1.4-7.4); Neutrophils % 80.8 % (38.7-73.9); Platelet Count 159 T/CUMM (130-400); Red Blood Count 3.27 MC/CUMM (3.8-5.5); Red Cell Distribution Width 13.2 % (9.3-17.3); White Blood Count 10.5 T/CUMM (4-12)
[2017-05-06 08:05] LABS: Calcium 7.3 MG/DL (8.5-10.1); Magnesium 2.8 MG/DL (1.8-2.4); Osmolality,Calculated 303.4 MOS/KG (273-304)
[2017-05-06 08:11] LABS: ABG Base Excess 6.7 MMOL/L (-2.5-2.5); ABG HCO3 30.4 MMOL/L (20-26); ABG Oxygen Saturation 94.1 % (95-100); ABG PH 7.303 (7.35-7.45); ABG PO2 76.5 MM HG (80-95); ABG TCO2 32.6 MMOL/L (23-27)
[2017-05-06 08:13] LABS: ABG PCO2 70.8 MM HG (35-48)
[2017-05-06 08:34] LABS: Hypochromasia 2+; Macrocytosis 1+
[2017-05-06] MEDS: methylPREDNISolone SOD SUC 40 MG/1 ML VIAL IV SCH ×2 (09:45→15:05)
[2017-05-06] MEDS: FUROSEMIDE 40 MG/4 ML VIAL IV SCH ×2 (09:46→15:06)
[2017-05-06] MEDS: hydrALAZINE 20 MG/1 ML VIAL IV PRN (10:25)
[2017-05-06] MEDS: AMINO ACIDS/DEXT/LYTES 5-15% 2,000 ML IV SCH (17:17)
[2017-05-06] MEDS: MINERAL OIL/PETROLATUM OPH OINT 3.5 GM TUBE BOTH EYES SCH (21:39)
[2017-05-06] MEDS: ENOXAPARIN 30 MG/0.3 ML SYRINGE SUBCUT SCH (21:39)
[2017-05-07] MEDS: CISATRACURIUM 200 MG in SODIUM CHLORIDE 0.9% 100 ML IV SCH ×2 (00:38→21:50)
[2017-05-07] MEDS: methylPREDNISolone SOD SUC 40 MG/1 ML VIAL IV SCH ×4 (00:38→23:35)
[2017-05-07] MEDS: INSULIN REGULAR 100 UNIT/ML SUBCUT SCH ×4 (00:38→17:41)
[2017-05-07] MEDS: DOPamine 800 MG/250 ML PREMIX IV SCH (00:38)
[2017-05-07] MEDS: LINEZOLID INJ 300 MG in PREMIX 1 EACH IV SCH ×2 (00:50→11:08)
[2017-05-07] MEDS: fentaNYL INJ 1,250 MCG in SODIUM CHLORIDE 0.9% 225 ML IV SCH ×4 (02:04→23:58)
[2017-05-07] MEDS: PROPOFOL 1,000 MG/100 ML BOTTLE IV SCH ×5 (02:40→21:51)
[2017-05-07 03:49] LABS: ABG Base Excess 7.6 MMOL/L (-2.5-2.5); ABG HCO3 36.5 MMOL/L (20-26); ABG Oxygen Saturation 94.8 % (95-100); ABG PH 7.274 (7.35-7.45); ABG PO2 85.1 MM HG (80-95)
[2017-05-07 03:51] LABS: ABG PCO2 80.6 MM HG (35-48)
[2017-05-07 04:04] LABS: Basophils # 0.1 10*3/uL (0.0-0.2); Basophils % 0.3 % (0.0-0.8); Hematocrit 29.7 VOL% (42.0-52.0); Hemoglobin 9.6 GM/DL (14.0-18.0); Immature Granulocytes % 8.6 %; Lymphocytes # 0.6 10*3/uL (1.4-4.0); Lymphocytes % 3.1 % (21.2-54.2); Mean Corpuscular HGB Conc 32.3 GM/DL (32-36); Mean Corpuscular Hemoglobin 29 PG (27-34); Mean Corpuscular Volume 88.7 FL (87-102); Mean Platelet Volume 10.6 FL (9.6-12.0); Monocytes # 1.6 10*3/uL (0.11-0.8); Monocytes % 8.1 % (1.7-12.7); NRBC # 0.06 10*3/uL; Neutrophils # 15.7 10*3/uL (1.4-7.4); Neutrophils % 79.9 % (38.7-73.9); Platelet Count 228 T/CUMM (130-400); Red Blood Count 3.35 MC/CUMM (3.8-5.5); Red Cell Distribution Width 13.4 % (9.3-17.3); White Blood Count 19.7 T/CUMM (4-12)
[2017-05-07 04:12] LABS: Calcium 7.6 MG/DL (8.5-10.1); Magnesium 2.9 MG/DL (1.8-2.4); Osmolality,Calculated 304.5 MOS/KG (273-304); Potassium 4.3 MMOL/L (3.5-5.1)
[2017-05-07 04:42] LABS: Band Neutrophils 2 % (0-10); Lymphocytes 4 % (20-55); Promyelocytes 1 %; Segmented Neutrophils 88 % (50-85); Total Cells Counted 100
[2017-05-07 04:43] LABS: Platelet Estimate Normal; Polychromasia Slight; Target Cells Slight
[2017-05-07] MEDS: FAMOTIDINE 20 MG/2 ML VIAL IV SCH ×2 (05:11→15:13)
[2017-05-07] MEDS: MEROPENEM 500 MG in SODIUM CHLORIDE 0.9% 100 ML IV SCH ×2 (06:22→17:05)
[2017-05-07] MEDS: TOBRAMYCIN 80 MG/2 ML VIAL RESP TX SCH ×2 (07:23→20:11)
[2017-05-07] MEDS: FUROSEMIDE 40 MG/4 ML VIAL IV SCH ×2 (09:19→15:13)
[2017-05-07] MEDS: POLYVINYL ALCOHOL 1.4% OPH SOLN 15 ML BOTTLE BOTH EYES PRN (11:08)
[2017-05-07] MEDS: SODIUM BICARB INJ 100 MEQ in DEXTROSE 5% 900 ML IV SCH (13:46)
[2017-05-07] MEDS: AMINO ACIDS/DEXT/LYTES 5-15% 2,000 ML IV SCH (18:12)
[2017-05-07] MEDS: ENOXAPARIN 30 MG/0.3 ML SYRINGE SUBCUT SCH (21:49)
[2017-05-07] MEDS: MINERAL OIL/PETROLATUM OPH OINT 3.5 GM TUBE BOTH EYES SCH (21:50)
[2017-05-08] MEDS: LINEZOLID INJ 300 MG in PREMIX 1 EACH IV SCH ×2 (01:07→12:34)
[2017-05-08] MEDS: INSULIN REGULAR 100 UNIT/ML SUBCUT SCH ×4 (01:08→18:04)
[2017-05-08] MEDS: DOPamine 800 MG/250 ML PREMIX IV SCH (01:08)
[2017-05-08] MEDS: CISATRACURIUM 200 MG in SODIUM CHLORIDE 0.9% 100 ML IV SCH (01:09)
[2017-05-08 04:56] LABS: Basophils % 0.1 % (0.0-0.8); Eosinophils % 0.1 % (0.00-10.9); Hemoglobin 8.7 GM/DL (14.0-18.0); Immature Granulocytes % 7.8 %; Immature Granulocytes Absolute 1.32 #; Lymphocytes # 0.8 10*3/uL (1.4-4.0); Lymphocytes % 4.8 % (21.2-54.2); Mean Corpuscular HGB Conc 32.2 GM/DL (32-36); Mean Corpuscular Hemoglobin 29 PG (27-34); Mean Corpuscular Volume 89.4 FL (87-102); Mean Platelet Volume 10.4 FL (9.6-12.0); Monocytes % 5.8 % (1.7-12.7); Neutrophils # 13.9 10*3/uL (1.4-7.4); Neutrophils % 81.4 % (38.7-73.9); Platelet Count 185 T/CUMM (130-400); Red Blood Count 3.02 MC/CUMM (3.8-5.5); Red Cell Distribution Width 13.3 % (9.3-17.3)
[2017-05-08 05:04] LABS: ABG Base Excess 6.9 MMOL/L (-2.5-2.5); ABG HCO3 30.7 MMOL/L (20-26); ABG Oxygen Saturation 92.6 % (95-100); ABG PH 7.266 (7.35-7.45); ABG PO2 73.4 MM HG (80-95)
[2017-05-08 05:06] LABS: ABG PCO2 79.8 MM HG (35-48)
[2017-05-08 05:16] LABS: Albumin 1.7 G/DL (3.4-5.0); Bilirubin,Total 1.1 MG/DL (0.2-1.0); Calcium 7.7 MG/DL (8.5-10.1); Osmolality,Calculated 308.7 MOS/KG (273-304); Potassium 4.2 MMOL/L (3.5-5.1); Total Protein 5.3 G/DL (6.4-8.3)
[2017-05-08 05:27] LABS: Band Neutrophils 5 % (0-10); Lymphocytes 4 % (20-55); Platelet Estimate Normal; Segmented Neutrophils 88 % (50-85); Total Cells Counted 100
[2017-05-08 05:28] LABS: Giant Platelets Few; Hypochromasia 1+; Ovalocytes Slight
[2017-05-08] MEDS: fentaNYL INJ 1,250 MCG in SODIUM CHLORIDE 0.9% 225 ML IV SCH ×4 (05:41→22:04)
[2017-05-08] MEDS: PROPOFOL 1,000 MG/100 ML BOTTLE IV SCH ×6 (05:43→23:29)
[2017-05-08] MEDS: FAMOTIDINE 20 MG/2 ML VIAL IV SCH ×2 (06:08→15:53)
[2017-05-08] MEDS: MEROPENEM 500 MG in SODIUM CHLORIDE 0.9% 100 ML IV SCH ×2 (06:09→18:04)
[2017-05-08] MEDS: SODIUM BICARB INJ 100 MEQ in DEXTROSE 5% 900 ML IV SCH (07:35)
[2017-05-08] MEDS: methylPREDNISolone SOD SUC 40 MG/1 ML VIAL IV SCH ×2 (07:41→15:58)
[2017-05-08] MEDS: FUROSEMIDE 40 MG/4 ML VIAL IV SCH ×2 (07:44→15:52)
[2017-05-08] MEDS: TOBRAMYCIN 80 MG/2 ML VIAL RESP TX SCH ×2 (08:00→19:29)
[2017-05-08] MEDS ORDERED: LIDOCAINE 2% 20 ML VIAL RESP TX ONE (09:22)
[2017-05-08] MEDS ORDERED: LIDOCAINE 1% 20 ML VIAL MISC INJ ONE (09:22)
[2017-05-08] MEDS: ALBUTEROL 2.5 MG/3 ML NEB RESP TX PRN (15:58)
[2017-05-08] MEDS: POLYVINYL ALCOHOL 1.4% OPH SOLN 15 ML BOTTLE BOTH EYES PRN ×2 (16:13→22:24)
[2017-05-08] MEDS: AMINO ACIDS/DEXT/LYTES 5-15% 2,000 ML IV SCH (17:11)
[2017-05-08] MEDS: MINERAL OIL/PETROLATUM OPH OINT 3.5 GM TUBE BOTH EYES SCH (22:26)
[2017-05-09] MEDS: methylPREDNISolone SOD SUC 40 MG/1 ML VIAL IV SCH ×4 (00:17→23:08)
[2017-05-09] MEDS: LINEZOLID INJ 300 MG in PREMIX 1 EACH IV SCH ×3 (00:20→23:09)
[2017-05-09] MEDS: INSULIN REGULAR 100 UNIT/ML SUBCUT SCH ×4 (00:23→17:36)
[2017-05-09] MEDS: CISATRACURIUM 200 MG in SODIUM CHLORIDE 0.9% 100 ML IV SCH ×2 (02:10→21:19)
[2017-05-09] MEDS: DOPamine 800 MG/250 ML PREMIX IV SCH ×2 (02:11→23:42)
[2017-05-09] MEDS: PROPOFOL 1,000 MG/100 ML BOTTLE IV SCH ×8 (02:54→21:20)
[2017-05-09] MEDS: fentaNYL INJ 1,250 MCG in SODIUM CHLORIDE 0.9% 225 ML IV SCH ×5 (02:56→22:27)
[2017-05-09] MEDS: FAMOTIDINE 20 MG/2 ML VIAL IV SCH ×2 (04:39→15:22)
[2017-05-09] MEDS: SODIUM BICARB INJ 100 MEQ in DEXTROSE 5% 900 ML IV SCH (04:40)
[2017-05-09 05:07] LABS: Basophils % 0.1 % (0.0-0.8); Hematocrit 26.1 VOL% (42.0-52.0); Hemoglobin 8.6 GM/DL (14.0-18.0); Immature Granulocytes % 7.8 %; Lymphocytes # 0.6 10*3/uL (1.4-4.0); Lymphocytes % 3.7 % (21.2-54.2); Mean Corpuscular Hemoglobin 29 PG (27-34); Mean Corpuscular Volume 88.8 FL (87-102); Mean Platelet Volume 10.4 FL (9.6-12.0); Monocytes # 0.4 10*3/uL (0.11-0.8); Monocytes % 2.9 % (1.7-12.7); NRBC # 0.05 10*3/uL; Neutrophils # 13.1 10*3/uL (1.4-7.4); Neutrophils % 85.5 % (38.7-73.9); Platelet Count 170 T/CUMM (130-400); Red Blood Count 2.94 MC/CUMM (3.8-5.5); Red Cell Distribution Width 13.2 % (9.3-17.3); White Blood Count 15.3 T/CUMM (4-12)
[2017-05-09 05:13] LABS: ABG Base Excess 7.8 MMOL/L (-2.5-2.5); ABG HCO3 35.9 MMOL/L (20-26); ABG Oxygen Saturation 91.2 % (95-100); ABG PO2 71.2 MM HG (80-95); ABG TCO2 38.3 MMOL/L (23-27)
[2017-05-09 05:14] LABS: ABG PCO2 76.4 MM HG (35-48)
[2017-05-09 05:29] LABS: Band Neutrophils 5 % (0-10); Giant Platelets Few; Hypochromasia 1+; Lymphocytes 1 % (20-55); Nucleated Red Blood Cells 1 (0-5); Platelet Estimate Normal; Segmented Neutrophils 89 % (50-85); Total Cells Counted 100
[2017-05-09 05:32] LABS: Calcium 7.3 MG/DL (8.5-10.1); Osmolality,Calculated 308.1 MOS/KG (273-304); Potassium 4.5 MMOL/L (3.5-5.1)
[2017-05-09] MEDS: MEROPENEM 500 MG in SODIUM CHLORIDE 0.9% 100 ML IV SCH ×2 (06:21→18:02)
[2017-05-09] MEDS: TOBRAMYCIN 80 MG/2 ML VIAL RESP TX SCH ×2 (07:16→19:16)
[2017-05-09] MEDS: FUROSEMIDE 40 MG/4 ML VIAL IV SCH ×2 (08:30→15:14)
[2017-05-09] MEDS: AMINO ACIDS/DEXT/LYTES 5-15% 2,000 ML IV SCH (17:37)
[2017-05-09] MEDS: MINERAL OIL/PETROLATUM OPH OINT 3.5 GM TUBE BOTH EYES SCH (22:29)
[2017-05-10] MEDS: INSULIN REGULAR 100 UNIT/ML SUBCUT SCH ×5 (00:25→23:49)
[2017-05-10] MEDS: PROPOFOL 1,000 MG/100 ML BOTTLE IV SCH ×8 (00:26→23:08)
[2017-05-10] MEDS: fentaNYL INJ 1,250 MCG in SODIUM CHLORIDE 0.9% 225 ML IV SCH ×3 (02:27→20:35)
[2017-05-10 03:53] LABS: ABG Base Excess 6.9 MMOL/L (-2.5-2.5); ABG HCO3 36.1 MMOL/L (20-26); ABG Oxygen Saturation 90.2 % (95-100); ABG PH 7.246 (7.35-7.45); ABG TCO2 38.7 MMOL/L (23-27)
[2017-05-10] MEDS: SODIUM BICARB INJ 100 MEQ in DEXTROSE 5% 900 ML IV SCH (04:21)
[2017-05-10 04:22] LABS: Basophils % 0.2 % (0.0-0.8); Hematocrit 26.2 VOL% (42.0-52.0); Hemoglobin 8.8 GM/DL (14.0-18.0); Immature Granulocytes % 7.4 %; Immature Granulocytes Absolute 1.91 #; Lymphocytes # 0.6 10*3/uL (1.4-4.0); Lymphocytes % 2.1 % (21.2-54.2); Mean Corpuscular HGB Conc 33.6 GM/DL (32-36); Mean Corpuscular Hemoglobin 29 PG (27-34); Mean Corpuscular Volume 85.9 FL (87-102); Mean Platelet Volume 10.5 FL (9.6-12.0); Monocytes # 0.9 10*3/uL (0.11-0.8); Monocytes % 3.3 % (1.7-12.7); NRBC # 0.16 10*3/uL; Neutrophils # 22.6 10*3/uL (1.4-7.4); Platelet Count 199 T/CUMM (130-400); Red Blood Count 3.05 MC/CUMM (3.8-5.5); Red Cell Distribution Width 13.2 % (9.3-17.3); White Blood Count 25.9 T/CUMM (4-12)
[2017-05-10 04:48] LABS: Calcium 7.2 MG/DL (8.5-10.1); Magnesium 2.7 MG/DL (1.8-2.4); Osmolality,Calculated 302.6 MOS/KG (273-304); Potassium 4.8 MMOL/L (3.5-5.1)
[2017-05-10 04:57] LABS: Band Neutrophils 3 % (0-10); Lymphocytes 3 % (20-55); Nucleated Red Blood Cells 2 (0-5); Platelet Estimate Adequate; Segmented Neutrophils 87 % (50-85); Total Cells Counted 100
[2017-05-10 04:58] LABS: Giant Platelets Few; Hypochromasia 1+
[2017-05-10] MEDS: CISATRACURIUM 200 MG in SODIUM CHLORIDE 0.9% 100 ML IV SCH (05:29)
[2017-05-10] MEDS: MEROPENEM 500 MG in SODIUM CHLORIDE 0.9% 100 ML IV SCH ×2 (06:34→21:11)
[2017-05-10] MEDS: FAMOTIDINE 20 MG/2 ML VIAL IV SCH ×2 (06:34→19:00)
[2017-05-10] MEDS: methylPREDNISolone SOD SUC 40 MG/1 ML VIAL IV SCH ×3 (06:58→23:49)
[2017-05-10] MEDS: TOBRAMYCIN 80 MG/2 ML VIAL RESP TX SCH ×2 (07:01→19:34)
[2017-05-10] MEDS: FUROSEMIDE 40 MG/4 ML VIAL IV SCH ×2 (09:39→19:00)
[2017-05-10] MEDS: metOLazone 5 MG TABLET PO SCH (15:24)
[2017-05-10] MEDS: LINEZOLID INJ 300 MG in PREMIX 1 EACH IV SCH ×2 (15:25→23:49)
[2017-05-10] MEDS: AMINO ACIDS/DEXT/LYTES 5-15% 2,000 ML IV SCH (19:45)
[2017-05-10] MEDS: MINERAL OIL/PETROLATUM OPH OINT 3.5 GM TUBE BOTH EYES SCH (20:53)
[2017-05-10] MEDS: PHENYLEPHRINE DRIP 40 MG/250 ML PREMIX IV SCH (21:47)
[2017-05-10] MEDS: DOPamine 800 MG/250 ML PREMIX IV SCH (23:49)
[2017-05-11] MEDS: CISATRACURIUM 200 MG in SODIUM CHLORIDE 0.9% 100 ML IV SCH ×2 (00:16→16:00)
[2017-05-11] MEDS: fentaNYL INJ 1,250 MCG in SODIUM CHLORIDE 0.9% 225 ML IV SCH ×5 (01:02→23:07)
[2017-05-11] MEDS: PROPOFOL 1,000 MG/100 ML BOTTLE IV SCH ×8 (02:15→23:06)
[2017-05-11 02:50] LABS: ABG Base Excess -1.6 MMOL/L (-2.5-2.5); ABG HCO3 22.8 MMOL/L (20-26); ABG PO2 58.7 MM HG (80-95)
[2017-05-11 02:54] LABS: Basophils # 0.1 10*3/uL (0.0-0.2); Basophils % 0.3 % (0.0-0.8); Hematocrit 28.3 VOL% (42.0-52.0); Hemoglobin 9.1 GM/DL (14.0-18.0); Immature Granulocytes % 8.9 %; Immature Granulocytes Absolute 4.32 #; Lymphocytes # 0.8 10*3/uL (1.4-4.0); Lymphocytes % 1.7 % (21.2-54.2); Mean Corpuscular HGB Conc 32.2 GM/DL (32-36); Mean Corpuscular Hemoglobin 29 PG (27-34); Mean Corpuscular Volume 90.1 FL (87-102); Mean Platelet Volume 10.7 FL (9.6-12.0); Monocytes # 2.2 10*3/uL (0.11-0.8); Monocytes % 4.6 % (1.7-12.7); Neutrophils # 40.9 10*3/uL (1.4-7.4); Neutrophils % 84.5 % (38.7-73.9); Platelet Count 259 T/CUMM (130-400); Red Blood Count 3.14 MC/CUMM (3.8-5.5); Red Cell Distribution Width 13.5 % (9.3-17.3)
[2017-05-11 02:56] LABS: ABG PH 7.092 (7.35-7.45)
[2017-05-11 02:58] LABS: White Blood Count 48.4 T/CUMM (4-12)
[2017-05-11 03:29] LABS: Calcium 6.8 MG/DL (8.5-10.1); Magnesium 2.6 MG/DL (1.8-2.4); Osmolality,Calculated 298.5 MOS/KG (273-304)
[2017-05-11] MEDS ORDERED: VANCOMYCIN INJ 2,000 MG in SODIUM CHLORIDE 0.9% 250 ML IV ONE (05:00)
[2017-05-11] MEDS: SODIUM BICARB INJ 100 MEQ in DEXTROSE 5% 900 ML IV SCH (05:30)
[2017-05-11 06:17] LABS: Band Neutrophils 8 % (0-10); Lymphocytes 1 % (20-55); Metamyelocytes 2 %; Myelocytes 1 %; Nucleated Red Blood Cells 3 (0-5); Segmented Neutrophils 86 % (50-85)
[2017-05-11 06:18] LABS: Hypochromasia 1+; Platelet Estimate Normal
[2017-05-11 06:19] LABS: Total Cells Counted 100
[2017-05-11] MEDS: PHENYLEPHRINE DRIP 40 MG/250 ML PREMIX IV SCH (06:25)
[2017-05-11] MEDS: FAMOTIDINE 20 MG/2 ML VIAL IV SCH ×2 (08:05→16:28)
[2017-05-11] MEDS: INSULIN REGULAR 100 UNIT/ML SUBCUT SCH ×3 (08:06→19:33)
[2017-05-11] MEDS: methylPREDNISolone SOD SUC 40 MG/1 ML VIAL IV SCH (08:07)
[2017-05-11] MEDS: FUROSEMIDE 40 MG/4 ML VIAL IV SCH (08:25)
[2017-05-11] MEDS: MEROPENEM 500 MG in SODIUM CHLORIDE 0.9% 100 ML IV SCH ×2 (11:44→22:22)
[2017-05-11] MEDS: POLYVINYL ALCOHOL 1.4% OPH SOLN 15 ML BOTTLE BOTH EYES PRN (12:09)
[2017-05-11] MEDS: LINEZOLID INJ 300 MG in PREMIX 1 EACH IV SCH (12:34)
[2017-05-11] MEDS: metOLazone 5 MG TABLET PO SCH (13:26)
[2017-05-11] MEDS ORDERED: NOREPINEPHRINE 4 MG/4 ML VIAL IV ONE (15:33)
[2017-05-11] MEDS ORDERED: ALBUMIN 25% 25 GM in PREMIX 1 EACH IV ONE (15:46)
[2017-05-11] MEDS: NOREPINEPHRINE 16 MG in SODIUM CHLORIDE 0.9% 234 ML IV SCH (16:00)
[2017-05-11] MEDS: metroNIDAZOLE 500 MG TABLET PO SCH ×3 (16:02→22:22)
[2017-05-11] MEDS: HYDROCORTISONE 100 MG VIAL IV SCH ×2 (16:19→22:24)
[2017-05-11] MEDS: AMINO ACIDS/DEXT/LYTES 5-15% 2,000 ML IV SCH (20:32)
[2017-05-11] MEDS: MINERAL OIL/PETROLATUM OPH OINT 3.5 GM TUBE BOTH EYES SCH (22:25)
[2017-05-12] MEDS: INSULIN REGULAR 100 UNIT/ML SUBCUT SCH ×4 (00:41→19:02)
[2017-05-12] MEDS: PHENYLEPHRINE DRIP 40 MG/250 ML PREMIX IV SCH ×3 (00:41→07:42)
[2017-05-12] MEDS: LINEZOLID INJ 300 MG in PREMIX 1 EACH IV SCH ×2 (00:44→13:18)
[2017-05-12] MEDS: NOREPINEPHRINE 16 MG in SODIUM CHLORIDE 0.9% 234 ML IV SCH ×4 (02:11→19:02)
[2017-05-12] MEDS: PROPOFOL 1,000 MG/100 ML BOTTLE IV SCH ×5 (02:31→15:34)
[2017-05-12 04:49] LABS: ABG Base Excess 1.1 MMOL/L (-2.5-2.5); ABG HCO3 30.7 MMOL/L (20-26); ABG Oxygen Saturation 80.3 % (95-100); ABG PCO2 89.1 MM HG (35-48); ABG TCO2 33.4 MMOL/L (23-27)
[2017-05-12] MEDS: FAMOTIDINE 20 MG/2 ML VIAL IV SCH (04:51)
[2017-05-12] MEDS: HYDROCORTISONE 100 MG VIAL IV SCH ×3 (04:51→17:56)
[2017-05-12 04:52] LABS: ABG PH 7.155 (7.35-7.45)
[2017-05-12] MEDS: fentaNYL INJ 1,250 MCG in SODIUM CHLORIDE 0.9% 225 ML IV SCH ×2 (04:52→11:05)
[2017-05-12 05:02] LABS: Basophils # 0.1 10*3/uL (0.0-0.2); Basophils % 0.2 % (0.0-0.8); Eosinophils # 0.1 10*3/uL (0.0-0.87); Eosinophils % 0.1 % (0.00-10.9); Hematocrit 22.4 VOL% (42.0-52.0); Hemoglobin 7.6 GM/DL (14.0-18.0); Immature Granulocytes % 9.9 %; Immature Granulocytes Absolute 5.14 #; Lymphocytes # 2.6 10*3/uL (1.4-4.0); Lymphocytes % 4.9 % (21.2-54.2); Mean Corpuscular HGB Conc 33.9 GM/DL (32-36); Mean Corpuscular Hemoglobin 30 PG (27-34); Mean Corpuscular Volume 88.5 FL (87-102); Mean Platelet Volume 11.7 FL (9.6-12.0); Monocytes # 4.5 10*3/uL (0.11-0.8); Monocytes % 8.6 % (1.7-12.7); NRBC # 2.44 10*3/uL; Neutrophils # 39.6 10*3/uL (1.4-7.4); Neutrophils % 76.3 % (38.7-73.9); Platelet Count 193 T/CUMM (130-400); Red Blood Count 2.53 MC/CUMM (3.8-5.5); Red Cell Distribution Width 13.9 % (9.3-17.3)
[2017-05-12 05:09] LABS: White Blood Count 51.9 T/CUMM (4-12)
[2017-05-12 05:30] LABS: Calcium 6.9 MG/DL (8.5-10.1); Magnesium 2.5 MG/DL (1.8-2.4); Osmolality,Calculated 285.9 MOS/KG (273-304); Potassium 4.8 MMOL/L (3.5-5.1)
[2017-05-12 06:13] LABS: Band Neutrophils 4 % (0-10); Lymphocytes 10 % (20-55); Metamyelocytes 1 %; Myelocytes 2 %; Nucleated Red Blood Cells 10 (0-5); Segmented Neutrophils 80 % (50-85); Total Cells Counted 100
[2017-05-12 06:14] LABS: Basophilic Stippling Slight; Hypochromasia 1+; Microcytosis 1+
[2017-05-12 06:15] LABS: Platelet Estimate Normal
[2017-05-12] MEDS: metroNIDAZOLE 500 MG TABLET PO SCH (06:57)
[2017-05-12] MEDS ORDERED: PHENYLEPHRINE INJ 160 MG in SODIUM CHLORIDE 0.9% 234 ML IV SCH (08:30)
[2017-05-12] MEDS: CISATRACURIUM 200 MG in SODIUM CHLORIDE 0.9% 100 ML IV SCH ×2 (09:41→17:56)
[2017-05-12] MEDS: MEROPENEM 500 MG in SODIUM CHLORIDE 0.9% 100 ML IV SCH (11:06)
[2017-05-12] MEDS: AMINO ACIDS/DEXT/LYTES 5-15% 2,000 ML IV SCH (17:57)
[2017-05-12 18:50] VITALS: BP 46/37
[2017-05-12] MEDS ORDERED: PANTOPRAZOLE 40 MG VIAL IV SCH (21:00)
== END 2017-05-12 19:00 | disposition expired | DRG 4 ==
LOC: N.ICU 13:58 → SUATTDRO 14:16
PROVIDERS: ADMIT Pediatrics; ATTEND Internal Medicine
PROC: IRGDHTC (2017-04-28 16:40)